=== PATIENT | male | born 1945 | race Caucasian/White ===

== ENCOUNTER 2019-07-15 15:27 | Inpatient (IN) ==
[2019-07-15] MEDS ORDERED: *HR* HYDROcodone/Acet 5/325 mg TABLET PO ONE (15:35)
[2019-07-15] MEDS ORDERED: *HR* OxyCODONE Immed Rel 5 MG TABLET PO ONE (16:12)
[2019-07-15 17:54] LABS: Basophils # 0.1 K/mcL (0.0-0.2); Basophils % 0.4 %; Eosinophils % 0.2 %; Hematocrit 41.1 % (37.5-50.1); Immature Granulocytes % 0.6 % (0-4); Lymphocytes # 1.5 K/mcL (0.6-4.6); Lymphocytes % 9.7 %; Mean Corpuscular HGB Conc 31.6 g/dL (31.6-35.5); Mean Corpuscular Hemoglobin 29.8 pg (28.0-33.3); Mean Corpuscular Volume 94.3 fL (83.0-100.0); Mean Platelet Volume 8.5 fL (9.4-12.4); Monocytes # 0.8 K/mcL (0.0-1.3); Monocytes % 5.4 %; Platelet Count 513 K/mcL (140-400); Red Blood Count 4.36 M/mcL (4.19-5.50); Red Cell Distribution Width 13.8 % (11.5-14.5); Segmented Neutrophils % 83.7 %; White Blood Count 15.5 K/mcL (4.3-11.1)
[2019-07-15 18:03] LABS: Prothrombin Time 11.9 Seconds (9.4-12.1)
[2019-07-15 18:13] LABS: BUN/Creatinine Ratio 25 (6-26); Blood Urea Nitrogen 19 mg/dL (8-23); Calcium 9.1 mg/dL (8.6-10.3); Carbon Dioxide 32 mEq/L (23-29); Chloride 100 mEq/L (98-107); Glucose 111 mg/dL (70-105); Osmolality,Calculated 289 (280-300); Potassium 3.9 mEq/L (3.5-5.1); Sodium 138 mEq/L (136-145); eGFR For African Americans > 60 (> 60); eGFR For Non-African Americans > 60 (> 60)
[2019-07-15] MEDS ORDERED: Naloxone 0.4 MG/ML INJ IVP PRN (18:34)
[2019-07-15] MEDS ORDERED: Ipratropium/Albuterol Neb 3 ML IH PRN (18:41)
[2019-07-15] MEDS ORDERED: *HR* OxyCODONE Immed Rel 5 MG TABLET PO PRN (18:42)
[2019-07-15] MEDS ORDERED: traZODone 50 MG TABLET PO PRN (18:42)
[2019-07-15] MEDS ORDERED: *HR* Metoprolol 5 MG/5 ML VIAL IVP PRN (19:44)
[2019-07-15] MEDS ORDERED: Famotidine 20 MG TABLET PO SCH (21:00)
[2019-07-15] MEDS: clonazePAM 0.5 MG TABLET PO PRN (21:09)
[2019-07-15] MEDS ORDERED: *HR* OxyCODONE ER (12 HR) 10 MG TABLET PO SCH (21:30)
[2019-07-15] MEDS: Budesonide/Formoterol 160/4.5 1 PUFF INH IH SCH (23:07)
[2019-07-16] MEDS: Gabapentin 400 MG CAPSULE PO SCH ×4 (00:36→20:12)
[2019-07-16] MEDS: Famotidine 20 MG TABLET PO SCH ×3 (00:36→20:11)
[2019-07-16] MEDS: *HR* OxyCODONE Immed Rel 15 MG TABLET PO SCH ×5 (00:36→23:51)
[2019-07-16] MEDS: OLANZapine 5 MG TAB.RAPDIS PO SCH ×2 (00:37→20:11)
[2019-07-16] MEDS: Sennosides/Docusate Sodium TABLET PO SCH ×3 (00:37→20:11)
[2019-07-16] MEDS: *HR* Heparin 5,000 UNIT/ML VIAL SQ SCH ×3 (05:40→18:00)
[2019-07-16 07:18] LABS: Basophils # 0.1 K/mcL (0.0-0.2); Basophils % 0.7 %; Eosinophils # 0.2 K/mcL (0.0-0.6); Eosinophils % 1.5 %; Hematocrit 40.9 % (37.5-50.1); Hemoglobin 12.7 g/dL (12.9-16.9); Immature Granulocytes % 0.7 % (0-4); Lymphocytes # 1.8 K/mcL (0.6-4.6); Lymphocytes % 17.6 %; Mean Corpuscular HGB Conc 31.1 g/dL (31.6-35.5); Mean Corpuscular Hemoglobin 29.4 pg (28.0-33.3); Mean Corpuscular Volume 94.7 fL (83.0-100.0); Mean Platelet Volume 8.8 fL (9.4-12.4); Monocytes # 0.7 K/mcL (0.0-1.3); Monocytes % 6.8 %; Neutrophils # 7.4 K/mcL (1.6-8.9); Platelet Count 471 K/mcL (140-400); Red Blood Count 4.32 M/mcL (4.19-5.50); Red Cell Distribution Width 13.9 % (11.5-14.5); Segmented Neutrophils % 72.7 %; White Blood Count 10.2 K/mcL (4.3-11.1)
[2019-07-16 07:39] LABS: BUN/Creatinine Ratio 22 (6-26); Blood Urea Nitrogen 14 mg/dL (8-23); Calcium 8.8 mg/dL (8.6-10.3); Carbon Dioxide 28 mEq/L (23-29); Chloride 103 mEq/L (98-107); Glucose 96 mg/dL (70-105); Osmolality,Calculated 288 (280-300); Potassium 3.9 mEq/L (3.5-5.1); Sodium 139 mEq/L (136-145); eGFR For African Americans > 60 (> 60); eGFR For Non-African Americans > 60 (> 60)
[2019-07-16] MEDS: Ketorolac 15 MG/ML VIAL IVP PRN (07:57)
[2019-07-16] MEDS: Budesonide/Formoterol 160/4.5 1 PUFF INH IH SCH ×2 (08:21→22:07)
[2019-07-16] MEDS: Nicotine 21 MG PATCH.TD24 TD SCH (10:01)
[2019-07-16] MEDS: clonazePAM 0.5 MG TABLET PO PRN (10:01)
[2019-07-16] MEDS ORDERED: *HR* LORazepam 2 MG/ML VIAL IVP ONE (14:43)
[2019-07-16] MEDS ORDERED: Haloperidol Lactate 5 MG/ML VIAL IVP ONE (14:48)
[2019-07-17] MEDS: Ketorolac 15 MG/ML VIAL IVP PRN ×2 (00:56→14:07)
[2019-07-17] MEDS: *HR* Heparin 5,000 UNIT/ML VIAL SQ SCH ×2 (05:13→17:10)
[2019-07-17] MEDS: Budesonide/Formoterol 160/4.5 1 PUFF INH IH SCH ×2 (07:38→22:44)
[2019-07-17] MEDS: Gabapentin 400 MG CAPSULE PO SCH ×2 (09:07→14:57)
[2019-07-17] MEDS: Nicotine 21 MG PATCH.TD24 TD SCH (09:07)
[2019-07-17] MEDS: Famotidine 20 MG TABLET PO SCH (09:07)
[2019-07-17] MEDS: *HR* OxyCODONE Immed Rel 15 MG TABLET PO SCH ×3 (09:07→17:34)
[2019-07-17] MEDS: clonazePAM 0.5 MG TABLET PO PRN (09:07)
[2019-07-17] MEDS: Sennosides/Docusate Sodium TABLET PO SCH (10:21)
[2019-07-17] MEDS ORDERED: Ringers Solution, Lactated 1,000 ML IVC SCH ×2 (11:00→22:21)
[2019-07-17] MEDS ORDERED: Albuterol 2.5 MG/3 ML NEBULIZER IH ONE ×2 (19:09→22:21)
[2019-07-17] MEDS ORDERED: Lidocaine HCL 4 ML Topical Solution (Laryng-O-Jet Kit Sterile Pak) TP ONE (19:12)
[2019-07-17] MEDS ORDERED: *HR* FentaNYL (PF) 100 MCG/2 ML VIAL ONE (19:12)
[2019-07-17] MEDS ORDERED: *HR* Propofol 200 MG/20 ML VIAL IVP ONE (19:12)
[2019-07-17] MEDS ORDERED: Lidocaine -MPF 2% 2 ML VIAL ONE (19:12)
[2019-07-17] MEDS ORDERED: *HR* Rocuronium Bromide 50 MG/5 ML VIAL ONE (19:12)
[2019-07-17] MEDS ORDERED: *HR* OxyCODONE Immed Rel 5 MG TABLET PO PRN (19:32)
[2019-07-17] MEDS ORDERED: Clindamycin 600 MG/50 ML 600 MG/50 ML IV.SOLN IVPB ONE (19:36)
[2019-07-17] MEDS ORDERED: *HR* PHENYLEPHRINE 1,000 MCG/10 ML SYRINGE IVP ONE (20:05)
[2019-07-17] MEDS: *HR* HYDROmorphone (PF) 1 MG/ML SYRINGE IVP PRN ×2 (21:34→21:41)
[2019-07-17] MEDS ORDERED: Naloxone 0.4 MG/ML INJ IVP PRN (22:21)
[2019-07-17] MEDS ORDERED: *HR* HYDROmorphone (PF) 1 MG/ML SYRINGE IVP PRN (22:21)
[2019-07-17] MEDS ORDERED: *HR* Metoprolol 5 MG/5 ML VIAL IVP PRN (22:21)
[2019-07-17] MEDS ORDERED: Ipratropium/Albuterol Neb 3 ML IH PRN (22:21)
[2019-07-18] MEDS: *HR* OxyCODONE Immed Rel 15 MG TABLET PO SCH ×4 (00:11→17:59)
[2019-07-18] MEDS: traZODone 50 MG TABLET PO PRN ×2 (03:28→23:22)
[2019-07-18] MEDS: Clindamycin 600 MG/50 ML 600 MG/50 ML IV.SOLN IVPB SCH ×3 (03:30→19:43)
[2019-07-18] MEDS: *HR* Heparin 5,000 UNIT/ML VIAL SQ SCH ×2 (05:41→17:59)
[2019-07-18] MEDS: Budesonide/Formoterol 160/4.5 1 PUFF INH IH SCH ×2 (07:52→20:19)
[2019-07-18] MEDS: Gabapentin 400 MG CAPSULE PO SCH ×3 (07:56→19:43)
[2019-07-18] MEDS: Famotidine 20 MG TABLET PO SCH ×2 (07:56→15:09)
[2019-07-18] MEDS: Sennosides/Docusate Sodium TABLET PO SCH ×2 (07:57→19:44)
[2019-07-18] MEDS: Nicotine 21 MG PATCH.TD24 TD SCH (07:57)
[2019-07-18] MEDS: clonazePAM 0.5 MG TABLET PO PRN ×2 (09:33→21:03)
[2019-07-18] MEDS: *HR* OxyCODONE Immed Rel 5 MG TABLET PO PRN ×2 (15:09→19:43)
[2019-07-18] MEDS ORDERED: OLANZapine 5 MG TAB.RAPDIS PO SCH (21:00)
[2019-07-19] MEDS: *HR* OxyCODONE Immed Rel 15 MG TABLET PO SCH ×2 (00:02→06:06)
[2019-07-19] MEDS: *HR* Heparin 5,000 UNIT/ML VIAL SQ SCH (05:04)
[2019-07-19 07:27] VITALS: BP 136/68
[2019-07-19] MEDS: Budesonide/Formoterol 160/4.5 1 PUFF INH IH SCH (07:52)
[2019-07-19] MEDS: Famotidine 20 MG TABLET PO SCH (08:29)
[2019-07-19] MEDS: Sennosides/Docusate Sodium TABLET PO SCH (08:29)
[2019-07-19] MEDS: Gabapentin 400 MG CAPSULE PO SCH (08:29)
[2019-07-19] MEDS: Nicotine 21 MG PATCH.TD24 TD SCH (08:30)
[2019-07-19] MEDS: clonazePAM 0.5 MG TABLET PO PRN (08:30)
[2019-07-19] MEDS ORDERED: *HR* OxyCODONE Immed Rel 15 MG TABLET PO SCH (10:00)
== END 2019-07-19 11:05 | DRG 480 ==
LOC: 3NENU 15:27 → EMEROOARM 15:27 → SUATTDRO 18:04 → 3NENU 18:21
PROVIDERS: ADMIT Internal Medicine; ATTEND Internal Medicine